=== PATIENT | female | born 1945 | race Caucasian/White ===

== ENCOUNTER 2016-07-21 15:31 | Emergency (ER) | payer OTHER, MEDICARE, MEDICAID ==
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
[2016-07-21 19:43] VITALS: BP 151/72
== END 2016-07-21 19:23 | disposition home or self-care (01) ==
LOC: ER 15:31
DX: M54.2 Cervicalgia (principal); R51 Headache; V43.63XA Car passenger injured in collision with pick-up truck in traffic accident, initial encounter; F17.200 Nicotine dependence, unspecified, uncomplicated; J44.9 Chronic obstructive pulmonary disease, unspecified; Z88.8 Allergy status to other drugs, medicaments and biological substances
CPT/HCPCS: 70450; 72050; 72125; 99284

== ENCOUNTER → 2016-09-05 | Outpatient (CLI) | payer MEDICARE, MEDICAID | LOC: RAD 13:55 | PROVIDERS: ATTEND Internal Medicine Cardiovascular Disease | DX: I65.23 Occlusion and stenosis of bilateral carotid arteries (principal) | CPT/HCPCS: 70498; 82565 ==

== ENCOUNTER → 2017-06-28 | Outpatient (CLI) | payer MEDICARE, MEDICAID ==
--- NOTE | 2017-06-28 14:41 | RADIOLOGY REPORT (SQ) ---
EXAM DESCRIPTION: CT CHEST WITHOUT COMPLETED DATE/TIME: 06/28/2017 1:42 pm REASON FOR STUDY: COUGH (R05) R05 COUGH COMPARISON: 04/23/2015 TECHNIQUE: CT scan performed of the chest without intravenous contrast. Images reviewed with lung, soft tissue and bone windows. Reconstructed coronal and sagittal MPR images reviewed. All images st ored on PACS. All CT scanners at this facility use dose modulation, iterative reconstruction, and/or weight based d osing when appropriate to reduce radiation dose to as low as reasonably achievable (ALARA). [facility]: Dose Right [facility]: CareDose [facility]: Dose Right [facility]: Teradose 4D [facility]: [employer] Technologies RADIATION DOSE: CT Rad equipment meets quality standard of care and radiation dose reduction techniq ues were employed. CTDIvol: 2.9 mGy. DLP: 103 mGy-cm. mGy. LIMITATIONS: No technical limitations. FINDINGS: LUNGS AND PLEURA: Since 2014, patient has developed a small bulla or bleb at the right alan g base just above the hemidiaphragm, 2 cm in size. Remainder of the lungs exhibit mild changes of ob structive disease in the apices. No fluffy alveolar infiltrates worrisome for edema or pneumonia. N o pleural effusion. No pneumothorax. No worrisome pulmonary nodules. HILAR AND MEDIASTINAL STRUCTURES: Calcified mediastinal lymph nodes are present from old granulomatou s disease. HEART AND VASCULAR STRUCTURES: No cardiomegaly. Very heavily calcified aortic valve, [place] coronary artery, and mitral annulus. UPPER ABDOMEN: Calcified granulomas in the liver and spleen THYROID AND OTHER SOFT TISSUES: No masses. No adenopathy. BONES: No significant finding. HARDWARE: None in the chest. OTHER: No other significant findings. IMPRESSION: No acute findings TECHNICAL DOCUMENTATION: JOB ID: [id number] Quality ID # [id number]: Final reports with documentation of one or more dose reduction techniques (e.g., Au tomated exposure control, adjustment of the mA and/or kV according to patient size, use of iterative reconstruction technique) 2010 [employer]- All Rights Reserved
== END ==
LOC: RAD 12:44
PROVIDERS: ATTEND Family Medicine
DX: R05 Cough (principal)
CPT/HCPCS: 71250

== ENCOUNTER → 2017-07-17 | Outpatient (CLI) | payer MEDICARE, MEDICAID ==
--- NOTE | 2017-07-17 11:33 | WOMENS IMAGING REPORT ---
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 TECHNIQUE: Dual-Energy X-ray Absorptiometry (DEXA) of the AP Spine and Hip. LIMITATIONS: None. FINDINGS: LUMBAR SPINE: The bone mineral density (BMD) measured from L1-L4 in the AP projection correlates with a T-score of -2.7, which is osteoporosis as defined by the World Health Organization. HIP: The bone mineral density (BMD) measured in the left hip correlates with a T-score of -3.8, which is o steoporosis as defined by the World Health Organization. IMPRESSION: 1. LUMBAR SPINE: OSTEOPOROSIS. 2. HIP: OSTEOPOROSIS. COMMENT: The World Health Organization defines low BMD as follows: T-score: Normal: Greater than -1.0 Osteopenia: Between -1.0 and -2.5 Osteoporosis: Less than -2.5 without fractures Established osteoporosis: Less than -2.5 with fractures In general, you may wish to consider: Diagnosis Treatment Follow-up DEXA Normal BMD Prevention 2-3 years Osteopenia Prevention/Therapy 1-2 years Osteoporosis Therapy Yearly TECHNICAL DOCUMENTATION: JOB ID: [id number] 8583[employer]- All Rights Reserved Reading location - IP/workstation name: [email or web address]
== END ==
LOC: WI 09:53
PROVIDERS: ATTEND Family Medicine
DX: M81.0 Age-related osteoporosis without current pathological fracture (principal)
CPT/HCPCS: 77080

== ENCOUNTER → 2019-06-09 | Outpatient (CLI) | payer MEDICARE, MEDICAID ==
--- NOTE | 2019-06-09 16:47 | RADIOLOGY REPORT (SQ) ---
EXAM DESCRIPTION: CAROTID DOPPLER COMPLETED DATE/TIME: 06/09/2019 4:01 pm REASON FOR STUDY: CAROTID STENOSIS I65.23 OCCLUSION AND STENOSIS OF BILATERAL CAROTID ARTERIES COMPARISON: 01/06/2014 TECHNIQUE: Grayscale ultrasound, Doppler velocity and spectra, and color Doppler images acquired of the extra-cranial carotid and vertebral arteries. Images stored on PACS. LIMITATIONS: None. FINDINGS: RIGHT CAROTID CCA Velocities: Normal velocity. Grayscale evaluation with multifocal shadowing eccentric plaque wit h less than 50% stenosis. ICA Velocities Peak systolic 198 m/s. End diastolic 46 m/s. Proximal ICA/CCA peak systolic ratio 2.18. Turbulent flow. Grayscale evaluation demonstrates extensive heterogeneous echogenic plaque with grea ter than 50% luminal narrowing. LEFT CAROTID CCA Velocities: Normal velocity. Grayscale evaluation demonstrates multifocal eccentric plaque with less than 50% luminal stenosis. ICA Velocities Peak systolic 339 m/s. End diastolic 93 m/s. Proximal ICA/CCA peak systolic ratio 4.05. Turbulent waveforms. Grayscale evaluation demonstrates extensive heterogeneous shadowing plaque with greater than 50% luminal stenosis. VERTEBRAL ARTERIES: Antegrade SUBCLAVIAN ARTERIES: Not imaged. OTHER: No other significant finding. IMPRESSION: 1. Extensive bilateral carotid atherosclerosis with greater than 70% ICA stenosis on th e left, worsened from prior. 2. 50 to 69% stenosis within the right ICA by velocity criteria, also increased from prior. COMMENT: Quality ID #[id number]: Velocity criteria are extrapolated from the diameter data as defined by t he Society of Radiologists in Ultrasound Consensus Conference. Radiology 2003: 229; 340-346. TECHNICAL DOCUMENTATION: JOB ID: [id number] [employer]- All Rights Reserved Reading location - IP/workstation name: [email or web address]
== END ==
LOC: SP 12:30
PROVIDERS: ATTEND Family Medicine
DX: I65.23 Occlusion and stenosis of bilateral carotid arteries (principal)
CPT/HCPCS: 93880

== ENCOUNTER 2019-06-11 18:43 | Emergency (ER) | payer MEDICARE, MEDICAID ==
--- NOTE | 2019-06-11 19:09 | ER Document Report ---
ED Medical Screen (RME) - General Chief Complaint: Chest Pain Stated Complaint: CHEST PAIN Time Seen by Provider: 06/11/19 19:06 Primary Care Provider: BRENNA GUAMAN MD [Primary Care Provider] - Follow up as needed Mode of Arrival: Wheelchair Information source: Patient Notes: 73-year-old female presented to ED for cough cold congestion chest pain. Her EKG does show a pulse of 103 with a wandering pacemaker supraventricular bigeminy. Pressure is 159/118 pulse is 104 O2 sats 98%. Patient states that she thought maybe she had coughed so much that she pulled a muscle and that is why the whole right side of her chest was hurting. States she does have a history of COPD she does have very coarse lung sounds. Patient states she has leukemia that is in remission. I have greeted and performed a rapid initial assessment of this patient. A comprehensive ED assessment and evaluation of the patient, analysis of test results and completion of medical decision making process will be conducted by an additional ED providers. TRAVEL OUTSIDE OF THE [place] IN LAST 30 DAYS: No - Related Data Allergies/Adverse Reactions: cortisone [Cortisone] Allergy (Verified 07/21/16 16:14) VOMITING acetaminophen [From Vicodin] Adverse Reaction (Mild, Verified 07/21/16 16:14) VOMITING and dizziness hydrocodone bitartrate [From Vicodin] Adverse Reaction (Mild, Verified 07/21/16 16:14) Dizziness and vomiting Past Medical History - Past Medical History Cardiac Medical History: Denies: Hx Coronary Artery Disease, Hx Heart Attack, Hx Hypertension Pulmonary Medical History: Reports: Hx Bronchitis - "years ago", Hx COPD Denies: Hx Asthma, Hx Pneumonia Neurological Medical History: Denies: Hx Cerebrovascular Accident, Hx Seizures Renal/ Medical History: Denies: Hx Peritoneal Dialysis Musculoskeltal Medical History: Reports Hx Arthritis Past Surgical History: Denies: Hx Pacemaker - Immunizations Hx Diphtheria, Pertussis, Tetanus Vaccination: Yes Doctor's Discharge - Discharge Referrals: BRENNA GUAMAN MD [Primary Care Provider] - Follow up as needed
--- NOTE | 2019-06-11 19:38 | RADIOLOGY REPORT (SQ) ---
EXAM DESCRIPTION: CHEST 2 VIEWS COMPLETED DATE/TIME: 06/11/2019 7:30 pm REASON FOR STUDY: Cough congestion chest pain COMPARISON: 08/17/2015 EXAM PARAMETERS: NUMBER OF VIEWS: two views TECHNIQUE: Digital Frontal and Lateral radiographic views of the chest acquired. RADIATION DOSE: NA LIMITATIONS: none FINDINGS: LUNGS AND PLEURA: Right upper lobe infiltrate. MEDIASTINUM AND HILAR STRUCTURES: No masses or contour abnormalities. HEART AND VASCULAR STRUCTURES: Heart normal size. No evidence for failure. BONES: No acute findings. HARDWARE: None in the chest. OTHER: No other significant finding. IMPRESSION: Right upper lobe pneumonia. TECHNICAL DOCUMENTATION: JOB ID: [id number] [employer]- All Rights Reserved Reading location - IP/workstation name: [email or web address]
[2019-06-11 20:29] LABS: ABSOLUTE LYMPHOCYTES (AUTO) 1.3 10^3/uL (0.5-4.7); ABSOLUTE MONOCYTES (AUTO) 0.7 10^3/uL (0.1-1.4); ABSOLUTE NEUT (AUTO) 10.9 10^3/uL (1.7-8.2); BASOPHILS % (AUTO) 0.2 % (0-2); EOSINOPHILS % (AUTO) 0.1 % (0-6); HEMATOCRIT 29.6 % (36.0-47.0); HEMOGLOBIN 10.1 g/dL (12.0-15.5); LYMPHOCYTES % (AUTO) 10.3 % (13-45); MEAN CORPUSCULAR HEMOGLOBIN 30.8 pg (27.0-33.4); MEAN CORPUSCULAR HGB CONC 34.2 g/dL (32.0-36.0); MEAN CORPUSCULAR VOLUME 90 fl (80-97); MONOCYTES % (AUTO) 5.6 % (3-13); PLATELET COUNT 198 10^3/uL (150-450); RED BLOOD COUNT 3.28 10^6/uL (3.72-5.28); RED CELL DISTRIBUTION WIDTH 14.9 % (11.5-14.0); SEGMENTED NEUTROPHILS % (AUTO) 83.8 % (42-78); TOTAL CELLS COUNTED % (AUTO) 100 %
[2019-06-11 20:51] LABS: ALBUMIN 3.1 g/dL (3.5-5.0); ALKALINE PHOSPHATASE 60 U/L (38-126); ANION GAP 7 (5-19); ASPARTATE AMINO TRANSFERASE 24 U/L (14-36); BILIRUBIN,DIRECT 0.1 mg/dL (0.0-0.4); BILIRUBIN,TOTAL 0.4 mg/dL (0.2-1.3); BLOOD UREA NITROGEN 42 mg/dL (7-20); CALCIUM 8.5 mg/dL (8.4-10.2); CARBON DIOXIDE 25 mmol/L (22-30); CHLORIDE 103 mmol/L (98-107); GLUCOSE 99 mg/dL (75-110); POTASSIUM 4.5 mmol/L (3.6-5.0); TOTAL PROTEIN 6.8 g/dL (6.3-8.2)
[2019-06-11] MEDS ORDERED: AZITHROMYCIN INJ 500 MG VIAL IV ONE (21:22)
[2019-06-11] MEDS ORDERED: CEFTRIAXONE INJ 1000 MG VIAL IV ONE (21:22)
[2019-06-11] MEDS ORDERED: NORMAL SALINE 500 ML IV ONE (21:23)
--- NOTE | 2019-06-11 21:28 | ER Document Report ---
ED General - General Chief Complaint: Chest Pain Stated Complaint: CHEST PAIN Time Seen by Provider: 06/11/19 19:06 Primary Care Provider: BRENNA GUAMAN MD [Primary Care Provider] - Follow up as needed Mode of Arrival: Wheelchair Information source: Patient Notes: 73-year-old female arrives with chief complaint of cough fever tachycardia and left-sided chest pain as she was getting up yesterday morning. Chest x-ray today reveals right upper lobe pneumonia. Also patient has increased BUN and troponin. 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 Her PMD is Dr. Guaman. She has a history of rheumatoid arthritis and takes methotrexate and Gleevec. I suspect immunocompromised pneumonia induced tachycardia increased the troponins. TRAVEL OUTSIDE OF THE [place] IN LAST 30 DAYS: No - HPI Onset: Other - Prior morning Onset/Duration: Sudden Quality of pain: Achy Severity: Mild Pain Level: 1 Associated symptoms: Chest pain - Related Data Allergies/Adverse Reactions: cortisone [Cortisone] Allergy (Verified 06/11/19 19:10) VOMITING acetaminophen [From Vicodin] Adverse Reaction (Mild, Verified 06/11/19 19:10) VOMITING and dizziness hydrocodone bitartrate [From Vicodin] Adverse Reaction (Mild, Verified 06/11/19 19:10) Dizziness and vomiting Past Medical History - General Information source: Patient - Social History Smoking Status: Current Every Day Smoker Frequency of alcohol use: None Drug Abuse: None Family History: Reviewed & Not Pertinent Patient has suicidal ideation: No Patient has homicidal ideation: No - Past Medical History Cardiac Medical History: Denies: Hx Coronary Artery Disease, Hx Heart Attack, Hx Hypertension Pulmonary Medical History: Reports: Hx Bronchitis - "years ago", Hx COPD Denies: Hx Asthma, Hx Pneumonia Neurological Medical History: Denies: Hx Cerebrovascular Accident, Hx Seizures Renal/ Medical History: Denies: Hx Peritoneal Dialysis Musculoskeletal Medical History: Reports Hx Arthritis Past Surgical History: Denies: Hx Pacemaker - Immunizations Hx Diphtheria, Pertussis, Tetanus Vaccination: Yes Hx Pneumococcal Vaccination: 02/04/13 Review of Systems - Review of Systems Constitutional: See HPI, Fever, Malaise, Weakness EENT: No symptoms reported Cardiovascular: See HPI, Chest pain Respiratory: See HPI, Cough, Hurts to breathe, Short of breath Gastrointestinal: No symptoms reported Genitourinary: No symptoms reported Female Genitourinary: No symptoms reported Musculoskeletal: No symptoms reported Skin: No symptoms reported Hematologic/Lymphatic: No symptoms reported Neurological/Psychological: No symptoms reported Physical Exam - Vital signs Vitals: Temp Pulse Resp BP Pulse Ox 98.5 F 101 H 26 H 159/118 H 97 06/11/19 19:07 06/11/19 19:07 06/11/19 19:07 06/11/19 19:07 06/11/19 19:07 Interpretation: Hypertensive, Tachycardic, Tachypneic - Respiratory Respiratory status: Respiratory distress Chest status: Nontender Breath sounds: Productive cough Chest palpation: Normal - Cardiovascular Rhythm: Tachycardia Heart sounds: Normal auscultation Murmur: No Friction rub: No Shekhar's crunch: No - Abdominal Inspection: Normal Distension: No distension Bowel sounds: Normal Tenderness: Nontender Organomegaly: No organomegaly - Back Back: Normal - Extremities General upper extremity: Other - Rheumatoid arthritic changes to fingers and wrist fusiform DIP and DIPs - Neurological Neuro grossly intact: Yes Cognition: Normal Orientation: AAOx4 [place] Coma Scale Eye Opening: Spontaneous [place] Coma Scale Verbal: Oriented [place] Coma Scale Motor: Obeys Commands [place] Coma Scale Total: 15 Speech: Normal Cranial nerves: Normal Additional motor exam normals: Other - 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 - Psychological Associated symptoms: Anxious - Skin Skin Temperature: Warm Skin Moisture: Dry Course - Vital Signs Vital signs: Temp Pulse Resp BP Pulse Ox 98.5 F 101 H 26 H 159/118 H 95 06/11/19 19:07 06/11/19 19:07 06/11/19 19:07 06/11/19 19:07 06/11/19 19:10 - Laboratory Result Diagrams: 06/11/19 20:09 06/11/19 20:09 Laboratory results interpreted by me: 06/11/19 06/11/19 20:09 20:09 WBC 13.0 H RBC 3.28 L Hgb 10.1 L Hct 29.6 L RDW 14.9 H Lymph % (Auto) 10.3 L Absolute Neuts (auto) 10.9 H Seg Neutrophils % 83.8 H Sodium 135.3 L BUN 42 H Est GFR ( Amer) 58 L Est GFR (MDRD) Non-Af 48 L Albumin 3.1 L - Diagnostic Test Radiology reviewed: Reports reviewed - EKG Interpretation by Me EKG shows normal: Sinus rhythm Rate: Tachycardia Rhythm: Other - 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 Guaman advised transfer to [place]; call was at 2130. Sp[address] with [address] Pettit who will come see the patient. She is scheduled to see him on 16 June. I spoke with Yanelis at [facility] who advises she has missed 6 appointments for vascular surgery since 2017 because of carotid stenosis. Patient is on Gleevec and methotrexate. This puts her at risk for immunosuppressive type problem. I discussed this with the patient that she has been advised of admission by Dr. Astorga via Brenna at the transfer center Discharge - Discharge Clinical Impression: Elevated troponin I level, Dehydration, Heart disease Pneumonia Qualifiers: Pneumonia type: due to unspecified organism Laterality: right Lung location: upper lobe of lung Qualified Code(s): J18.9 - Pneumonia, unspecified organism Rheumatoid arthritis Qualifiers: Rheumatoid arthritis location: hand Rheumatoid factor presence: unspecified presence Laterality: bilateral Qualified Code(s): M06.9 - Rheumatoid arthritis, unspecified Condition: Fair Disposition: [facility] Additional Instructions: For this patient to Dr. Astorga for speaking with Brenna at the transfer center Referrals: BRENNA GUAMAN MD [Primary Care Provider] - Follow up as needed
[2019-06-11] MEDS ORDERED: NITROGLYCERIN 2% OINTMENT 1 GM PACKET TP ONE (22:54)
--- NOTE | 2019-06-11 23:51 | PDOC CONSULTATION ---
Consultation Consult Date: 06/11/19 Provider Consulted: STEPH NICKERSON Consult reason:: Elevated troponin History of Present Illness Admission Date/PCP: BRENNA GUAMAN MD Patient complains of: Right-sided chest pain History of Present Illness: ANANYA JEFFRIES is a 73 year old female With medical history significant for rheumatoid arthritis, immunosuppressive therapy, nicotine dependence-cigarettes, remote carotid disease intervention in [facility]. Patient is not a great historian. However she does not report any prior cardiac history. Specifically there is no report of cardiac catheterization, stents or CVA. Patient developed relatively acute onset right sided chest pain together with respiratory distress. Radiological findings include right upper lobe pneumonia. Troponin is elevated. Patient has been tachycardic with multiple atrial foci. No major surgeries reported to me. Patient has been a lifelong cigarette smoker with at least a pack a day. Lately a pack would last for 2 days. Past Medical History Cardiac Medical History: Denies: Coronary Artery Disease, Myocardial Infarction, Hypertension Pulmonary Medical History: Reports: Bronchitis - "years ago", Chronic Obstructiv e Pulmonary Disease (COPD) Denies: Asthma, Pneumonia Neurological Medical History: Denies: Seizures Musculoskeltal Medical History: Reports: Arthritis Hematology: Denies: Anemia Past Surgical History Past Surgical History: Denies: Pacemaker Social History Smoking Status: Current Every Day Smoker Family History Family History: Reviewed & Not Pertinent Parental Family History Reviewed: Yes - No familial illnesses Children Family History Reviewed: NA Sibling(s) Family History Reviewed.: NA Medication/Allergy Home Medications: Cholecalciferol (Vitamin D3) [Vitamin D3 5000 unit Tablet] 1 tab PO ASDIR 12/26/11 Folic Acid 1 tab PO DAILY 12/26/11 Methotrexate Sodium [Methotrexate] 3 tab PO ASDIR 12/26/11 Omeprazole 20 mg PO BID 12/26/11 Tiotropium Merigold [Spiriva Handihaler 18 mcg/dose (30 Dose)] 1 puff IH DAILY 12/26/11 Atorvastatin Calcium [Lipitor 40 mg Tablet] 1 tab PO DAILY 11/04/13 Imatinib Mesylate [Gleevec] 100 mg PO TID 11/04/13 Oxycodone HCl 7.5 mg PO BID 11/04/13 Trazodone HCl [Desyrel 50 mg Tablet] 50 mg PO QHS 11/04/13 Cyclobenzaprine HCl [Flexeril 5 mg Tablet] 5 mg PO TID #15 tablet 03/17/17 Allergies/Adverse Reactions: cortisone [Cortisone] Allergy (Verified 06/11/19 19:10) VOMITING hydrocodone bitartrate [From Vicodin] Adverse Reaction (Mild, Verified 06/11/19 19:10) Dizziness and vomiting Review of Systems Constitutional: PRESENT: as per HPI Cardiovascular: PRESENT: chest pain Respiratory: PRESENT: cough, dyspnea Psychiatric: PRESENT: as per HPI Physical Exam Vital Signs: Temp Pulse Resp BP Pulse Ox 101.4 F H 101 H 38 H 114/79 100 06/11/19 22:55 06/11/19 19:07 06/11/19 22:01 06/11/19 22:01 06/11/19 22:01 Intake & Output 06/10/19 06/11/19 06/12/19 06:59 06:59 06:59 Weight 36.287 kg General appearance: PRESENT: no acute distress, cooperative, thin Head exam: PRESENT: atraumatic, normocephalic Eye exam: PRESENT: conjunctiva pink, EOMI Mouth exam: PRESENT: moist Respiratory exam: PRESENT: crackles, decreased breath sounds - Right upper lung zone, tachypnea Cardiovascular exam: PRESENT: irregular rhythm, +S1, +S2, tachycardia Pulses: PRESENT: normal radial pulses GI/Abdominal exam: PRESENT: soft Rectal exam: PRESENT: deferred Neurological exam: PRESENT: alert, awake, oriented to person, oriented to place, oriented to time, oriented to situation Psychiatric exam: PRESENT: appropriate affect Skin exam: PRESENT: dry, intact Results Laboratory Results: 06/11/19 20:09 06/11/19 20:09 06/11/19 06/11/19 20:09 20:09 WBC 13.0 H RBC 3.28 L Hgb 10.1 L Hct 29.6 L MCV 90 MCH 30.8 MCHC 34.2 RDW 14.9 H Plt Count 198 Seg Neutrophils % 83.8 H Sodium 135.3 L Potassium 4.5 Chloride 103 Carbon Dioxide 25 Anion Gap 7 BUN 42 H Creatinine 1.11 Est GFR ( Amer) 58 L Glucose 99 Calcium 8.5 Total Bilirubin 0.4 AST 24 Alkaline Phosphatase 60 Total Protein 6.8 Albumin 3.1 L 06/11/19 20:09 Troponin I 1.430 EKG Comments: Twelve-lead EKG 11/04/2013. Independently reviewed by me. Sinus rhythm, 92 bpm, left atrial abnormality Twelve-lead EKG 06/11/2019 Wandering atrial pacemaker. No significant ST-T changes to suggest ischemia. Impressions: Chest X-Ray 06/11/19 19:10 IMPRESSION: Right upper lobe pneumonia. Status: Image reviewed by me - Right upper lobe pneumonia. Emphysematous chest. Assessment & Plan - Diagnosis (1) Pneumonia Qualifiers: Pneumonia type: due to unspecified organism Laterality: right Lung location: upper lobe of lung Qualified Code(s): J18.9 - Pneumonia, unspecified organism Plan: Patient needs intravenous antibiotics and bronchodilator therapy likely Pulmonary toilet Given immunocompromise status aggressive therapy may be needed. (2) Elevated troponin I level Plan: Elevated troponin likely secondary to pneumonia and severe infection. Underlying acute coronary syndrome cannot be excluded given risk factors for coronary artery disease including age and lifelong cigarette smoking. There is questionable history of peripheral vascular disease with carotid disease being mentioned. Would recommend supportive care although not acute coronary syndrome. Would recommend aspirin 81 mg daily Recommend low-dose beta-segundo Would recommend statin as well. We will obtain 2D echocardiogram
[2019-06-11] MEDS: ACETAMINOPHEN 325 MG TABLET PO ONE (23:58)
[2019-06-12] MEDS: ACETAMINOPHEN 325 MG TABLET PO ONE (00:01)
[2019-06-12 03:54] VITALS: BP 98/56
--- NOTE | 2019-06-12 19:43 | EKG REPORT ---
SEVERITY:- ABNORMAL ECG - WANDERING PACEMAKER ILATERAL NFARCT, OLD ST DEPRESSION, CONSIDER ISCHEMIA, INF LEADS BORDERLINE PROLONGED QT INTERVAL : Confirmed by: Sylvie Camejo MD 12-Jun-2019 19:43:07
== END 2019-06-12 03:56 | disposition short-term general hospital (02) ==
LOC: ER 18:43
DX: J18.9 Pneumonia, unspecified organism (principal); J44.0 Chronic obstructive pulmonary disease with (acute) lower respiratory infection; E86.0 Dehydration; I11.9 Hypertensive heart disease without heart failure; R00.8 Other abnormalities of heart beat; R79.89 Other specified abnormal findings of blood chemistry; R05 Cough; R50.9 Fever, unspecified; R00.0 Tachycardia, unspecified; R07.1 Chest pain on breathing; R06.02 Shortness of breath; R53.1 Weakness; R53.81 Other malaise; F17.210 Nicotine dependence, cigarettes, uncomplicated; M06.9 Rheumatoid arthritis, unspecified; Z79.899 Other long term (current) drug therapy; Z88.8 Allergy status to other drugs, medicaments and biological substances
CPT/HCPCS: 93005; 36415; 87040; 85025; 87077; 80053; 84484; 87186; 87150 ×26; 71046; 93010; A9270; J0696; J7040; J0456; 96365; 96368; 99291; 99292